=== PATIENT | female | born 1990 ===

== ENCOUNTER 2022-05-20 02:14 | Emergency (ER) | payer OTHER ==
[~2022-05-20] VITALS: Ht 157.5 cm; Wt 77.0 kg
[2022-05-20] MEDS ORDERED: IBUPROFEN 600MG TABLET PO ONE (03:15)
[2022-05-20] MEDS ORDERED: TETANUS, DIPHTHERIA, PERTUSSIS VAC/PF 0.5ML (>10YR OLD) IM ONE (03:15)
[2022-05-20] MEDS ORDERED: AMOX1TAB16 MT (03:24)
[2022-05-20 03:50] VITALS: BP 139/87
== END 2022-05-20 03:52 ==
LOC: ER 02:14
DX: S61.411A Laceration without foreign body of right hand, initial encounter (principal); Y04.2XXA Assault by strike against or bumped into by another person, initial encounter; Y93.89 Activity, other specified; Y92.9 Unspecified place or not applicable; Z02.79 Encounter for issue of other medical certificate
CPT/HCPCS: 73130; 90471; 90715; 99283